=== PATIENT | female | born 1955 | race Caucasian/White ===

== ENCOUNTER 2020-03-18 14:39 | Emergency (ER) | payer MEDICARE ==
[~2020-03-18 14:39] MED LIST: FIORICET1 EACH PO; MEDROL 4MG DOSEP4 MG PO; TAMOXIFEN CITRA10 MG PO; VALSARTAN80 MG PO
[2020-03-18 15:06] LABS: BASOPHIL 0.8 % (0-2); EOSINOPHIL 2.5 % (0-7); HCT 37.4 % (37.0-47.0); HGB 12.5 g/dl (12.5-16.0); LYMPHOCYTE 21.3 % (15-48); MCH 28.2 pg (25.0-31.0); MCHC 33.4 g/dL (32.0-36.0); MCV 84.4 fL (78.0-100.0); MONOCYTE 8.6 % (0-12); MPV 9.5 fL (6.0-9.5); NEUTROPHIL 66.4 % (41-80); NRBC 0; PLT 240 K/uL (150-400); RBC 4.43 M/uL (4.20-5.40); RDW 13.1 % (11.5-14.0); WBC 7.2 K/uL (4.0-10.5)
[2020-03-18 15:12] LABS: INR 1.06 (0.9-1.2); PROTHROMBIN TIME 13.1 SECONDS (11.4-13.6); PTT 30.5 SECONDS (22.2-34.7)
[2020-03-18 15:24] LABS: ALBUMIN 3.7 g/dL (3.4-5.0); BILIRUBIN - TOTAL 0.2 mg/dL (0.2-1.0); CREATININE 0.96 mg/dL (0.51-0.95); GLOBULIN (CALCULATION) 4.5 g/dL; TOTAL PROTEIN 8.2 g/dL (6.4-8.2)
[2020-03-18 15:29] LABS: CKMB 0.7 ng/mL (0.0-3.6)
== END 2020-03-18 19:16 | disposition other institution (70) ==
LOC: FER 14:39
PROVIDERS: Emergency Medicine
DX: I20.0 Unstable angina (principal); I10 Essential (primary) hypertension; Z85.3 Personal history of malignant neoplasm of breast; Z20.822 Contact with and (suspected) exposure to COVID-19
CPT/HCPCS: 36415; 71045; 80053; 82553; 84484; 85025; 85610; 85730; 93005; J2405; U0002

== ENCOUNTER 2020-11-22 15:08 | Emergency (ER) | payer MEDICARE | END 2020-11-22 17:34 | disposition home or self-care (01) | LOC: FER 15:08 | DX: T16.2XXA Foreign body in left ear, initial encounter (principal); I10 Essential (primary) hypertension; Z88.0 Allergy status to penicillin; Z88.6 Allergy status to analgesic agent; X58.XXXA Exposure to other specified factors, initial encounter ==

== ENCOUNTER 2021-08-20 08:09 | Emergency (ER) | payer MEDICARE | END 2021-08-20 12:05 | disposition home or self-care (01) | LOC: FER 08:09 | DX: K59.00 Constipation, unspecified (principal); I10 Essential (primary) hypertension; E11.9 Type 2 diabetes mellitus without complications; Z88.0 Allergy status to penicillin | CPT/HCPCS: 99283 ==